=== PATIENT | female | born 1970 | race Caucasian/White ===

== ENCOUNTER 2020-09-25 10:41 | Emergency (ER) | payer MEDICARE, MEDICAID, SELFPAY ==
[2020-09-25 11:04] VITALS: BP 126/87; PULSE 80; RESP 18; TEMP 36.4; O2SAT 98; BMI 27.8
--- NOTE | 2020-09-25 11:47 | ED.DENTAL ---
HPI - Dental/Oral General Chief complaint: Dental/Oral Stated complaint: dental pain Time Seen by Provider: 09/25/20 11:00 History of Present Illness HPI Narrative: Patient complains of right lower dental pain after extraction of 3 teeth several days ago at [facility], he is taking antibiotics and has a follow-up appointment in a week and half, denies any fever chills Related Data Previous Rx's Medication Instructions Recorded buspirone 15 mg tablet 15 mg PO TID 30 Days #90 tab 08/15/20 ferrous gluconate 324 mg (37.5 mg 324 mg PO DAILY 30 Days #30 tab 08/15/20 iron) tablet folic acid 1 mg tablet 1 mg PO DAILY 30 Days #30 tab 08/15/20 ibuprofen 800 mg tablet 800 mg PO Q8H 30 Days #90 tab 08/15/20 metformin 500 mg tablet 500 mg PO BID 30 Days #60 tab 08/15/20 thiamine HCl (vitamin B1) 100 mg 100 mg PO DAILY 30 Days #30 tab 08/15/20 tablet hydrocodone-acetaminophen 1 tab PO Q6H PRN #20 tab 09/25/20 ibuprofen 600 mg PO Q6H PRN #20 tab 09/25/20 Allergies Allergy/AdvReac Type Severity Reaction Status Date / Time No Known Allergies* Allergy Unknown Uncoded 09/25/20 11:07 Review of Systems Review of Systems: No fever no chills no weakness no dizziness no difficulty swallowing or breathing no swelling under the tongue no rash Yes all other systems are reviewed and are negative [facility] Past Medical History Source: nursing notes reviewed Medical History (Updated 09/25/20 @ 11:49 by JAIME Espinoza) No known health problems Social History Social History Advance Directives: No Advance Directives Information Provided: No Physical Exam Vital Signs: Vital Signs: Last Vital Signs Temp 97.5 F 09/25/20 11:04 Pulse 80 09/25/20 11:04 Resp 18 09/25/20 11:04 BP 126/87 09/25/20 11:04 Pulse Ox 98 09/25/20 11:04 Body Mass Index 27.8 Patient and O x3 no acute distress cooperative The oral exam there is no swelling or redness to the skin, there is no fluctuant abscess on the gum, there is the extraction site in the right lower gum which is not swollen with no fluctuant abscess, there is no swelling under the tongue there is no impairment of breathing or swallowing Neck is supple Respiratory no distress Skin no rashes Neuro no focal deficits Course Course Course Narrative: Patient is given analgesic medication and advised to follow with dentist Discharge Plan Discharge Clinical Impression: Pain, dental, Dental caries Patient Disposition: Home, Self-Care Additional Instructions: Continue your antibiotics and follow with the dentist who did the extraction Return any time if worse Prescriptions: New hydrocodone-acetaminophen 5-325 mg tablet 1 tab PO Q6H PRN (Reason: pain) Qty: 20 RF: 0 ibuprofen 600 mg tablet 600 mg PO Q6H PRN (Reason: pain) Qty: 20 RF: 0 No Action buspirone 15 mg tablet 15 mg PO TID 30 Days Qty: 90 RF: 5 ferrous gluconate 324 mg (37.5 mg iron) tablet 324 mg PO DAILY 30 Days Qty: 30 RF: 5 folic acid 1 mg tablet 1 mg PO DAILY 30 Days Qty: 30 RF: 5 metformin 500 mg tablet 500 mg PO BID 30 Days Qty: 60 RF: 5 ibuprofen 800 mg tablet 800 mg PO Q8H 30 Days Qty: 90 RF: 1 thiamine HCl (vitamin B1) 100 mg tablet 100 mg PO DAILY 30 Days Qty: 30 RF: 5 Interventions: ED Discharge Assessment Last Done: 09/25/20 12:19 Discharge Date/Time: 09/25/20 12:19
== END 2020-09-25 12:19 | disposition home or self-care (01) ==
PROVIDERS: Emergency Provider Emergency Medicine; PCP Family Medicine
DX: K02.9 Dental caries, unspecified (principal)
CPT/HCPCS: 99283